=== PATIENT | female | born 1955 ===

== ENCOUNTER 2023-08-03 05:40 | Day surgery (SDC) | payer BC ==
[2023-08-02 10:51] VITALS: BMI 33.6
[2023-08-03] MEDS ORDERED: Oxymetazoline HCl 0.05% (30 ML BOT) ONE (06:22)
[2023-08-03 06:44] LABS: Hematocrit 39.8 % (36.0-47.0); Hemoglobin 13.4 g/dL (12.0-16.0)
[2023-08-03 07:17] LABS: Anion Gap 13 mmol/L (10-20); BUN (Urea Nitrogen) 13 mg/dL (9.8-20.1); Calc. Creatinine Clearance 94 mL/min (70-130); Carbon Dioxide 22 mmol/L (23-31); Chloride 110 mmol/L (98-107); Estimated GFR 82; Glucose 88 mg/dL (80-115); Potassium 4.1 mmol/L (3.5-5.1); Sodium 141 mmol/L (136-145)
[2023-08-03] MEDS ORDERED: fentaNYL PF 100 MCG/2 ML SYRINGE ONE (07:51)
[2023-08-03] MEDS ORDERED: Ondansetron PF 4 MG/2 ML Vial ONE (08:03)
[2023-08-03] MEDS ORDERED: Succinylcholine 200 MG/10 ml SYRINGE FS ONE (08:03)
[2023-08-03] MEDS ORDERED: PROPOFOL 200 MG/20 ML VIAL ONE (08:03)
[2023-08-03] MEDS ORDERED: Dexamethasone 20 MG/5 ML VIAL ONE (08:03)
[2023-08-03] MEDS ORDERED: Lidocaine 1% PF 5 ML VIAL ONE (08:03)
[2023-08-03] MEDS ORDERED: methylPREDNISolone Acetate 40 mg/ml Vial ONE (08:08)
[2023-08-03] MEDS ORDERED: fentaNYL 50 mcg/mL 1 mL Vial ONE (08:34)
[2023-08-03] MEDS ORDERED: HYDROcodone/Acetaminophen 5/325 mg Tablet ONE (09:15)
== END 2023-08-03 10:45 | disposition home or self-care (01) ==
LOC: SDC 05:40
PROVIDERS: ATTEND Otolaryngology Plastic Surgery within the Head & Neck
PROC: 0CBPXZZ Excision of Tonsils, External Approach (ICD-10-PCS; principal; 2023-08-03)
DX: J35.1 Hypertrophy of tonsils (principal); F41.9 Anxiety disorder, unspecified; M19.90 Unspecified osteoarthritis, unspecified site; R00.9 Unspecified abnormalities of heart beat; Z79.899 Other long term (current) drug therapy
CPT/HCPCS: 80048; 85014; 85018; 88304; 93005; 93010; J1030; J1100; J2405; J2704; J3010